=== PATIENT | male | born 1960 | race Caucasian/White ===

== ENCOUNTER 2021-12-10 11:12 | Day surgery (SDC) | payer OTHER ==
[~2021-12-10] VITALS: Ht 175.3 cm; Wt 92.2 kg
[~2021-12-10 11:12] MED LIST: "\\\"BLOOD PRESSURE MED\\\""; ASPIRIN 32325 MG/TAB PO; ASPIRIN E.C. 8181 MG PO; ATOXIMETIN-B1 CAP PO; CARDI-OMEGA1000 MG PO; CELEXA40 MG PO; CIPRO 500MG TA500 MG PO; FLOMAX0.4 MG PO; LOFIBRA160 MG PO; PERCOCET 325 MG1 TA2 PO; PHENERGAN 25 TA25 MG PO; PHENERGAN25 MG RC; WELLBUTRIN SR150 M1 PO; WELLBUTRIN XL150 MG PO; ZANTAC 150MG T150 MG PO; ZESTRIL 10MG10 MG PO; [UNRECOGNIZED DRUG - OTHER] PO
[2021-12-10 12:36] VITALS: BP 145/84; PULSE 71; TEMP 96.2
[2021-12-10] MEDS ORDERED: PRINIVIL40 MG PO (12:51)
[2021-12-10] MEDS ORDERED: GLUCOPHAGE500 MG/TAB PO (12:52)
[2021-12-10] MEDS ORDERED: CADUET 5 MG-101 TAB PO (12:52)
[2021-12-10] MEDS ORDERED: VITAMIN FLUSH-F1 CAP PO (12:53)
[2021-12-10] MEDS ORDERED: MULTI VITAMINS1 TAB PO (12:54)
[2021-12-10] MEDS ORDERED: EPA FISH OIL1 SGL PO (12:55)
[2021-12-10 15:30] VITALS: BP 125/77; PULSE 71
--- NOTE | 2021-12-10 15:30 | NUR ---
Patient returns to room 1 per cart from surgery accompanied by Arden RN and Mahogany RAY. Patient arouses to verbal stimuli. Temp 97.0 and room air sats 96%. Given diet Pepsi to drink. Post op shoe on the left foot. Darnell wrap dressing clean and dry on the foot and toes warm and pink. Siderails up x2 and call light in reach. Spouse in the room.
[2021-12-10 15:45] VITALS: BP 127/71; PULSE 64
--- NOTE | 2021-12-10 15:45 | NUR ---
Resting without complaints of discomfort and left foot dressing clean and dry with post op shoe in place.
[2021-12-10 16:00] VITALS: BP 124/79; PULSE 63
--- NOTE | 2021-12-10 16:00 | NUR ---
Dr. Smiley in the room and talks with spouse and patient. All questions answered.
--- NOTE | 2021-12-10 16:09 | NUR ---
IV discontinued and site is free of redness. Patient dresses self.
--- NOTE | 2021-12-10 16:15 | NUR ---
Dismissal instructions given and patient voices understanding of these. States already has follow up appointment and has the office number at home for questions or concerns.
--- NOTE | 2021-12-10 16:19 | NUR ---
Patient dismissed to home driven by spouse and taken to vehicle per wheelchair with post op shoe in place on the left foot.
== END 2021-12-10 16:19 | disposition home or self-care (01) ==
LOC: SDCO 11:12
DX: M20.12 Hallux valgus (acquired), left foot (principal); M20.42 Other hammer toe(s) (acquired), left foot; M20.22 Hallux rigidus, left foot; I12.9 Hypertensive chronic kidney disease with stage 1 through stage 4 chronic kidney disease, or unspecified chronic kidney disease; E11.22 Type 2 diabetes mellitus with diabetic chronic kidney disease; N18.9 Chronic kidney disease, unspecified; G47.33 Obstructive sleep apnea (adult) (pediatric); I25.10 Atherosclerotic heart disease of native coronary artery without angina pectoris; I73.9 Peripheral vascular disease, unspecified; I48.0 Paroxysmal atrial fibrillation; F17.210 Nicotine dependence, cigarettes, uncomplicated; Z95.5 Presence of coronary angioplasty implant and graft; Z79.899 Other long term (current) drug therapy; Z79.84 Long term (current) use of oral hypoglycemic drugs; Z98.62 Peripheral vascular angioplasty status; Z79.01 Long term (current) use of anticoagulants
CPT/HCPCS: C1713; J1100; J7120